=== PATIENT | female | born 1950 | race Caucasian/White ===

== ENCOUNTER 2021-11-26 10:43 | Outpatient (CLI) | payer MEDICARE, BC | END 2021-11-26 10:44 | disposition home or self-care (01) | LOC: CSHMRI 10:43 | PROVIDERS: ATTEND Psychiatry & Neurology Neurology | DX: G50.0 Trigeminal neuralgia (principal); R90.82 White matter disease, unspecified | CPT/HCPCS: 70553 ==

== ENCOUNTER 2022-01-07 10:35 | Outpatient (CLI) | payer MEDICARE, BC | END 2022-01-07 10:36 | disposition home or self-care (01) | LOC: CSHMRI 10:35 | PROVIDERS: ATTEND Nurse Practitioner Adult Health | DX: M54.42 Lumbago with sciatica, left side (principal); R29.898 Other symptoms and signs involving the musculoskeletal system; Z91.81 History of falling; M47.816 Spondylosis without myelopathy or radiculopathy, lumbar region | CPT/HCPCS: 72148 ==

== ENCOUNTER 2023-03-09 13:58 | Outpatient (CLI) | payer MEDICARE, BC | END 2023-03-09 13:59 | disposition home or self-care (01) | LOC: CSHMAMMO 13:58 | PROVIDERS: ATTEND Internal Medicine | DX: Z12.31 Encounter for screening mammogram for malignant neoplasm of breast (principal); Z13.820 Encounter for screening for osteoporosis; Z78.0 Asymptomatic menopausal state | CPT/HCPCS: 77063; 77067; 77080 ==

== ENCOUNTER 2024-03-09 11:08 | Outpatient (CLI) | payer MEDICARE, BC | END 2024-03-09 11:09 | disposition home or self-care (01) | LOC: CSHMAMMO 11:08 | PROVIDERS: ATTEND Nurse Practitioner | DX: Z12.31 Encounter for screening mammogram for malignant neoplasm of breast (principal) | CPT/HCPCS: 77063; 77067 ==